=== PATIENT | male | born 1990 | race Two or more races ===

== ENCOUNTER → 2021-08-03 | Emergency (ER) | payer OTHER ==
[~2021-08-03] VITALS: Ht 172.7 cm; Wt 86.2 kg
[~2021-08-03] MED LIST: ONDA-144 PO; ONDANSETRON ODT 4 MG TAB PO ONE; OXYCODONE W/ ACETAMINOPHEN 5/325MG TABLET PO ONE; PERCOT PO
[2021-08-03 21:40] VITALS: BP 150/70
== END | disposition home or self-care (01) ==
LOC: EDBD 18:39 → ER 18:39
DX: S82.401A Unspecified fracture of shaft of right fibula, initial encounter for closed fracture (principal); X58.XXXA Exposure to other specified factors, initial encounter; Y93.89 Activity, other specified; Y92.89 Other specified places as the place of occurrence of the external cause; Y99.8 Other external cause status
CPT/HCPCS: 29515; 73562; 73590; 73610; 99284; Q0162

== ENCOUNTER 2022-05-06 15:00 | Emergency (ER) | payer OTHER ==
[~2022-05-06 15:00] MED LIST changes: -ONDANSETRON ODT 4 MG TAB PO ONE; -OXYCODONE W/ ACETAMINOPHEN 5/325MG TABLET PO ONE
[2022-05-06 16:00] VITALS: BP 127/4
== END 2022-05-07 00:43 | disposition left against medical advice (07) ==
LOC: ER 15:00
DX: R11.2 Nausea with vomiting, unspecified (principal); Z53.21 Procedure and treatment not carried out due to patient leaving prior to being seen by health care provider

== ENCOUNTER 2022-08-09 18:17 | Emergency (ER) | payer MEDICAID, OTHER ==
[~2022-08-09] VITALS: Ht 152.4 cm; Wt 100.0 kg
[2022-08-09 19:33] VITALS: BP 132/83
== END 2022-08-10 04:31 | disposition left against medical advice (07) ==
LOC: ER 18:17
DX: M79.604 Pain in right leg (principal); Z53.21 Procedure and treatment not carried out due to patient leaving prior to being seen by health care provider

== ENCOUNTER 2023-10-02 16:43 | Emergency (ER) | payer MEDICAID ==
[~2023-10-02] VITALS: Ht 180.3 cm; Wt 90.0 kg
[2023-10-02] MEDS: TETANUS-DIPTH-ACEL PERTUSSIS 0.5ML SYR Tdap IM ONE (17:00)
[2023-10-02] MEDS: KETOROLAC TROMETH 60MG/2ML VIAL IM ONE (17:32)
[2023-10-02 18:02] VITALS: PULSE 115; RESP 18; O2SAT 97
[2023-10-02] MEDS: ONDANSETRON HCL 4 MG/2 ML VIAL IV ONE (19:20)
[2023-10-02] MEDS: MORPHINE SULFATE INJ 2 MG/ml SYRG IV ONE (19:21)
[2023-10-02 19:56] VITALS: PULSE 111; RESP 18; O2SAT 97
[2023-10-02 20:08] VITALS: BP 163/92; PULSE 119; RESP 17; TEMP 98.8; O2SAT 97
== END 2023-10-02 18:37 | disposition short-term general hospital (02) ==
LOC: ER 16:43
DX: S02.82XA Fracture of other specified skull and facial bones, left side, initial encounter for closed fracture (principal); S02.81XA Fracture of other specified skull and facial bones, right side, initial encounter for closed fracture; Z79.899 Other long term (current) drug therapy; V87.8XXA Person injured in other specified noncollision transport accidents involving motor vehicle (traffic), initial encounter; Y93.55 Activity, bike riding; Y92.488 Other paved roadways as the place of occurrence of the external cause; Y99.8 Other external cause status
CPT/HCPCS: 70450; 70486; 72125; 96372; 96374; 96375; 99285; J1885; J2270; J2405